=== PATIENT | female | born 1985 | race Hispanic/Latino ===

== ENCOUNTER 2017-08-19 19:00 | Inpatient (IN) | payer SELFPAY ==
[~2017-08-19 19:00] MED LIST: ISOVUE-370 76%-LOCM 1 ML ONE
[2017-08-19 19:17] LABS: #Basophils 0.1 thou/uL (0.0-0.2); #Eosinphils 0.1 thou/uL (0.0-0.7); #Lymphocytes 3.5 thou/uL (1.20-3.40); #Neutrophils 5.8 thou/uL (1.40-6.50); %Basophils 0.9 % (0.0-1.0); %Lymphocytes 33.4 % (21.0-51.0); %Monocytes 9.5 % (0.0-10.0); Mean Platelet Volume 7.3 fL (7.4-10.4); Red Blood Cell (RBC) Count 4.42 mill/uL (4.20-5.40); White Blood Cell (WBC) Count 10.5 thou/uL (4.8-10.8)
[2017-08-19 19:26] LABS: PTT 29.9 SEC (22.9-36.1); Prothrombin Time 13.3 SEC (12.0-14.7)
--- NOTE | 2017-08-19 19:27 | CT ---
BRAIN CT WITHOUT IV CONTRAST: 08/19/17 HISTORY: 32-year-old female with altered mental status and right sided weakness prior to admission. This is st [facility] alert. There is no focal mass or midline shift. No intra or extra-axial hemorrhage. Sinuses and mastoids are clear. No CT evidence for acute infarct. IMPRESSION: Unremarkable brain CT. No mass, hemorrhage or other acute process. Findings were discussed with Dr. Rosado by phone at 7:13 p.m. Code CR POS: [facility]
[2017-08-19 19:31] LABS: ALT (SGPT) 14 U/L (8-55); AST (SGOT) 17 U/L (5-34); Alkaline Phosphatase 58 U/L (40-150); Anion Gap 13 mmol/L (10-20); BUN (Urea Nitrogen) 10 mg/dL (7.0-18.7); Bilirubin, Total 0.5 mg/dL (0.2-1.2); Calc. Creatinine Clearance 0 mL/min (70-130); Calcium 9.2 mg/dL (7.8-10.44); Carbon Dioxide 26 mmol/L (22-29); Chloride 104 mmol/L (98-107); Estimated GFR-MDRD 89; Globulin 3.2 g/dL (2.4-3.5); Protein, Total 7.5 g/dL (6.0-8.3)
--- NOTE | 2017-08-19 19:32 | RAD ---
UPRIGHT PORTABLE CHEST ONE VIEW: 08/19/17 HISTORY: 32-year-old female with altered mental status and right sided weakness. Heart size is within normal limits. The lungs are clear. There appear to be some postop changes of th e right shoulder. IMPRESSION: No acute intrathoracic disease. POS: [facility]
[2017-08-19 19:34] LABS: Troponin I Less than 0.010 ng/mL (< 0.028)
--- NOTE | 2017-08-19 20:44 | CT ---
CTA NECK WITH 3D VOLUME RENDERING LIMITED CTA [place] WITH 3D VOLUME RENDERING 08/19/17 CLINICAL HISTORY: Right sided weakness, new onset with clinical concern for carotid dissection. FINDINGS: Imaging of the [place] reveals patent bilateral MCA and patent bilateral A1 segments and an unremarkable appearing ACOM region. There is no obvious occlusion or high grade stenosis of the proxi mal bilateral [employer] or involving either carotid terminus. There is a dominant left vertebral artery which is patent. Small caliber right vertebral artery parti ally terminates in PICA without definitive evidence for high grade stenosis or occlusion. The proxima l aspect is obscured by streak artifact from adjacent contrast density. Evaluation of each common car otid artery and cervical internal carotid artery reveals no high grade stenosis, occlusion or definit declan evidence for carotid dissection. Imaged upper lung zones reveal no consolidation. IMPRESSION: No definite evidence for carotid dissection. Additional details are described above. POS: [facility]
[2017-08-19 21:52] LABS: Bilirubin Negative (Negative); Blood, Urine Negative (Negative); Glucose, Urine (Dipstick) Negative (Negative); Ketone, Urine Negative (Negative); Nitrite Negative (Negative); Protein, Urine (Dipstick) Negative (Neg-Trace); Urobilinogen 0.2 mg/dL (0.2-1.0)
[2017-08-19 22:15] LABS: Amphetamine Not Detected (NotDetected); Methadone Not Detected (NotDetected); Methamphetamine Not Detected (NotDetected)
[2017-08-19] MEDS ORDERED: Morphine 4 MG/ML VIAL ONE (22:38)
[2017-08-19] MEDS ORDERED: Ketorolac Tromethamine 30 MG/ML VIAL ONE (22:46)
[2017-08-19] MEDS ORDERED: Fentanyl 100 MCG/2 ML VIAL ONE (22:46)
[2017-08-20 00:06] VITALS: BMI 26.4
[2017-08-20] MEDS ORDERED: hydrALAZINE 20 MG/ML VIAL SLOW IVP PRN (04:58)
[2017-08-20] MEDS ORDERED: Acetaminophen 325 MG TAB PO PRN (04:58)
--- NOTE | 2017-08-20 05:18 | HP ---
PRIMARY CARE PHYSICIAN: The patient does not have a primary care physician. CHIEF COMPLAINT: "Right neck pain as well as numbness and tingling on the right side of my body." HISTORY OF PRESENT ILLNESS: Ms. Michaud is a pleasant 32-year-old female who has no signif icant past medical history. She says in the last 2 weeks she has been experiencing moderate to sever e neck pain. She says that she noticed that even more when she was lying down watching TV with her b oyfriend. She says that they were messing around on the couch a bit and then she was lying down watc kaz television after that when she felt that her whole body went numb. She says that she tried to s tand up and it felt like her legs are going to give out on her and she also felt dizzy, then she noti gary the numbness on the side of her face as well as her right arm and leg and also the numbness went to her fingertips. For this reason, she came to the emergency room for evaluation. When asked if carolin machado had had any trauma, she does not remember having any trauma, but then she says about 2 years ago carolin machado had been drinking a little bit too much and fell and fractured her right clavicle. The patient den ies any chest pain or shortness of breath. No nausea, no vomiting. She says some of her symptoms long ve resolved, but she still notices some numbness in her right hand and some chest numbness. REVIEW OF SYSTEMS: Constitutional: There have been no fevers, chills, no night sweats, no weight lo ss. HEENT: No headache, no dizziness, no visual changes, no sore throat, rhinorrhea, neck pain, no adenopathy. Pulmonary: No hemoptysis, no cough, no wheezing. Cardiovascular: She denies any chest pain, no shortness of breath, no PND, no orthopnea. Gastrointestinal: No abdominal pain, no nausea , no vomiting, no change in bowels. Genitourinary: No urinary frequency, hematuria, no hesitancy. Neurologic: As in the history of present illness. Skin and Integument: No skin changes. No rash. PAST MEDICAL HISTORY: Negative. She says occasionally she has been told she had elevated blood pres sure. PAST SURGICAL HISTORY: She had surgery to repair her right clavicle. ALLERGIES: TYLENOL NO. 3. SOCIAL HISTORY: She is , but . No children. She smokes about a pack of cigarettes on the weekend. She does say that she drinks fairly heavily on the weekend and sometime she would ca ll a binge drinking, but she does not feel that she drinks too much. FAMILY HISTORY: Significant for heart attack and cancer in her grandmother. CURRENT MEDICATIONS: None. PHYSICAL EXAMINATION: GENERAL: She is alert and oriented. She appears to be in no acute distress. HEENT: Pupils are equal, round, and reactive. Extraocular muscles are intact. Sclerae are anicteri c. Throat: No erythema, no exudates. NECK: No adenopathy, no bruits. LUNGS: Clear. There is no wheezing, no rales. CARDIOVASCULAR: She has a normal S1 and S2. No S3 or S4. No murmurs, clicks, no rubs. ABDOMEN: Soft, it is nontender, nondistended. Positive for bowel sounds. There is no rebound, no g uarding. EXTREMITIES: No clubbing, cyanosis, no edema. NEUROLOGICALLY: The exam is nonfocal. LABORATORY DATA: EKG was normal sinus rhythm, no ST wave changes. White blood cell count 10.5, hemo globin 14, hematocrit is 42.0, platelet count is 293. INR is 1.0. Chemistries: Sodium 139, potassi um 4.0, chloride 104, CO2 is 26, BUN of 10, creatinine 0.75, glucose is 116. Urine test wa s negative. Toxicology screen was positive for cocaine and cannabinoids. ASSESSMENT AND PLAN: This is a 32-year-old female who presents with right-sided numbness and neck pa in as well. Given her age and lack of risk factors for coronary artery disease, I suspect that her s ymptoms could be related to a cervical strain or cervical radiculopathy. She did have a fall few yea rs back, which was forceful enough to have fractured her clavicle. She may have injured her cervical spine during that time as well. However, she does have a urine drug screen positive for cocaine and slightly elevated blood pressure and she is a smoker and therefore there are some risk factors for c erebrovascular disease. Therefore, we will get an MRI of the brain as well as an echocardiogram and carotid Dopplers, place her on aspirin. Check a lipid panel and get a PT, OT assessment.
[2017-08-20] MEDS: traMADol HCl 50 MG TAB PO PRN ×2 (05:27→14:48)
[2017-08-20] MEDS ORDERED: Aspirin 325 MG TAB PO SCH (08:00)
[2017-08-20] MEDS ORDERED: Enoxaparin Sodium 40 MG/0.4 ML SYRINGE SC SCH (09:00)
[2017-08-20] MEDS ORDERED: FLU VACC QS2017-18 36 mo. & older 0.5 ML SYRINGE IM ONE (09:00)
[2017-08-20] MEDS ORDERED: Aspirin 325 mg Enteric Coated Tablet PO SCH (09:00)
[2017-08-20] MEDS ORDERED: Famotidine 20 MG TAB PO SCH (09:00)
--- NOTE | 2017-08-20 10:19 | CON ---
DATE OF CONSULTATION: 08/20/2017 CONSULTING PHYSICIAN: Hospital Service. IMPRESSION: Probable anxiety attack. PLAN: MRI of the brain. HISTORY OF PRESENT ILLNESS: Ms. Michaud is a 32-year-old white female with no significant past hist ory. She reports that she did cocaine about 3 days ago. She also smokes pot. She suddenly develope d a tingling sensation involving her entire body. She then felt like the right side got a bit weak a nd she was having trouble walking and using her right arm. This went on for several hours. She came to the hospital for evaluation. She had a CT angiogram of the brain and nothing remarkable was foun d. She is a bit hypertensive initially, but this has since settled down. She still complains of cj e numbness on the right side of the body. Nothing like this has ever happened before. PAST MEDICAL HISTORY: Negative. ALLERGIES: TYLENOL and CODEINE. SOCIAL HISTORY: Positive for drug use. FAMILY HISTORY: Noncontributory. REVIEW OF SYSTEMS: No complaints of headaches or past history of migraines. PHYSICAL EXAMINATION: VITAL SIGNS: Blood pressure 126/81 and temperature 97.8. HEENT: Normal. NEUROLOGIC EXAM: Her speech is fluent and clear. Her exam is nonfocal, other than subjective sensor y deficit on the right side. LABORATORY STUDIES: Including CBC, coags, chemistries, urinalysis were all unremarkable other than a positive drug screen for cocaine and cannabis. SUMMARY: This is a 32-year-old woman, who presents with a non-anatomic complaint of paresthesias and weakness. It is extremely unlikely to be multiple sclerosis, and given the bizarre presentation, I suspect this is primarily a psychogenic.
--- NOTE | 2017-08-20 14:06 | MRI ---
MRI BRAIN WITHOUT CONTRAST: Date: 08/20/17 HISTORY: Evaluate for stroke. COMPARISON: CT brain from prior day. FINDINGS: On the diffusion-weighted imaging sequence, there are no abnormal areas of diffusion restriction. Thi s is confirmed on the ADC map. On the susceptibility weighted imaging sequence, there are no abnormal areas of hemorrhage. The flow-voids of the [place] are maintained. No abnormal areas of gliosis. No midline shift. No mass effect. Ventricular size and extra-axial CSF spaces are normal. Orbits are unremarkable. The cerebellar tonsils terminate at the level of the foramen magnum. The marrow signal of the clivus and upper cervical spine is normal. The corpus callosum is normal. IMPRESSION: Normal examination of the brain. POS: [facility]
--- NOTE | 2017-08-20 14:16 | MRI ---
MRI CERVICAL SPINE: Date: 08/20/17 HISTORY: Right-sided weakness. TECHNIQUE: Multiplanar, multisequence noncontrast enhanced MRI of cervical spine obtained. FINDINGS: Spinal cord is unremarkable. No evidence of cord masses or lesions seen. C1-2: Unremarkable. C2-3: Unremarkable. C3-4: Unremarkable. C4-5: There is some minimal disc desiccation. The central canal and neural foramen are patent. No si gnificant degree of central stenosis seen. C5-6: Unremarkable. C6-7: Unremarkable. C7-T1: Unremarkable. IMPRESSION: Multilevel disc desiccation. No significant degree of central stenosis or neural foraminal narrowing seen. POS: [facility]
[2017-08-20 16:06] VITALS: BP 151/85; TEMP 98.4
--- NOTE | 2017-08-20 17:19 | PDOC.EVN ---
Event Note - Event Note Event Note: Pt discharged, continue to complain of pain. Objectively no findings. Gave her a prescription for tramadol 50 mg POI q8h PRD (ten doses), advised her to followup with a PCP.
--- NOTE | 2017-08-20 22:48 | DIS ---
PRIMARY CARE PROVIDER: None. DATE OF ADMISSION: 08/20/2017 DATE OF DISCHARGE: 08/20/2017 DISCHARGE DIAGNOSES: Paresthesias and weakness, suspected psychogenic etiology. HOSPITAL COURSE: Ms. Michaud is a pleasant 32-year-old lady who was admitted to [facility] for paresthesias and weakness. Please refer to the history and physical note from for further information. She was seen by Neurology Service. It was felt that her non-anatom ic complaint of paraesthesias and weakness was primarily psychogenic. She had an MRI of the brain, w hich did not show any acute intracranial abnormality. She also had a cervical spine MRI, which showe d minimal disk desiccation at C4-C5. There was no significant degree of central stenosis. Please note that the patient's urine toxicology screen at the time of admission was positive for coca ine and cannabinoids. She has been advised to stop smoking and recreational drug use. She is advised to follow up with her primary care provider in 3-5 days. She is advised to return to the emergency room or seek medical h elp for new or worsening symptoms. DISCHARGE DESTINATION: Home.
== END 2017-08-20 17:34 | disposition home or self-care (01) | DRG 948 ==
LOC: ERS 19:00 → OBSVTOIN 22:31 → 2SE 22:31
PROVIDERS: ADMIT Internal Medicine; ATTEND Internal Medicine
DX: R53.1 Weakness (principal); F17.210 Nicotine dependence, cigarettes, uncomplicated; R20.2 Paresthesia of skin; F19.90 Other psychoactive substance use, unspecified, uncomplicated
CPT/HCPCS: 36416; 70450; 70498; 70551; 71010; 72141; 80053; 80306; 81003; 82553; 84484; 84702; 84703; 85025; 85610; 85730; 90471; 90682; 93005; 96374; 96375; G0008; G8987-GO-CI; G8988-GO-CH; J1650; J1885; J2270; J3010; Q2036

== ENCOUNTER 2019-08-18 21:14 | Day surgery (SDC) | payer OTHER ==
[2019-08-18 22:03] VITALS: BMI 33.2
[2019-08-18] MEDS ORDERED: hydrALAZINE 20 MG/ML VIAL SLOW IVP PRN (22:28)
--- NOTE | 2019-08-18 22:41 | PDOC.EVN ---
Event Note - Event Note Event Note: At bedside now: Feels baby move CX was closed last BP 120/80s
[2019-08-18 22:58] LABS: #Eosinphils 0.1 thou/uL (0.0-0.7); #Lymphocytes 2.1 thou/uL (1.20-3.40); #Neutrophils 6.9 thou/uL (1.40-6.50); %Basophils 0.4 % (0.0-1.0); %Eosinophils 0.7 % (0.0-10.0); %Monocytes 10.1 % (0.0-10.0); %Neutrophils 67.9 % (42.0-75.0); Mean Corpuscular HGB CONC 35.3 g/dL (32.0-36.0); Mean Corpuscular Hemoglobin 30.9 pg (27.0-31.0); Mean Corpuscular Volume 87.4 fL (78.0-98.0); Mean Platelet Volume 8.5 fL (7.4-10.4); Platelet Count 211 thou/uL (130-400); Red Blood Cell (RBC) Count 3.89 mill/uL (4.20-5.40); White Blood Cell (WBC) Count 10.1 thou/uL (4.8-10.8)
[2019-08-18 23:22] LABS: ALT (SGPT) 9 U/L (8-55); AST (SGOT) 14 U/L (5-34); Albumin 3.2 g/dL (3.5-5.0); Alkaline Phosphatase 190 U/L (40-110); Anion Gap 11 mmol/L (10-20); BUN (Urea Nitrogen) 10 mg/dL (7.0-18.7); Bilirubin, Total 0.4 mg/dL (0.2-1.2); Calc. Creatinine Clearance 119 mL/min (70-130); Calcium 8.5 mg/dL (7.8-10.44); Carbon Dioxide 20 mmol/L (22-29); Chloride 108 mmol/L (98-107); Estimated GFR-MDRD 82; Globulin 3.3 g/dL (2.4-3.5); Glucose 134 mg/dL (70-105); Potassium 3.9 mmol/L (3.5-5.1); Protein, Total 6.5 g/dL (6.0-8.3); Sodium 135 mmol/L (136-145)
--- NOTE | 2019-08-18 23:25 | HP ---
TIME: 2229. LOCATION: Labor and Delivery Triage in bed A. CHIEF COMPLAINT: Decreased movement and abdominal pressure. HISTORY OF PRESENT ILLNESS: In brief, this is a 34-year-old, G1, P0, at 37 weeks and 4 days, here for some decreased movement and nonspecific abdominal pain "all over." She denies vaginal bleeding, contractions, or leakage of fluid. She denies headache or visual changes. She denies any complications except gestational diabetes for which she is diet controlled. REVIEW OF SYSTEMS: Complete review of systems was checked and is otherwise negative unless specified in the HPI. PAST SURGICAL HISTORY: Includes right clavicular surgery. PAST MEDICAL HISTORY: Negative. ALLERGIES: CODEINE. SOCIAL HISTORY: Negative for alcohol, tobacco, or drug use. PHYSICAL EXAMINATION: VITAL SIGNS: Initial blood pressure was 140/93, retaken and it was 137/90. She is afebrile and her pulse is in the 80s to 90s. Respirations are 18 and nonlabored. ABDOMEN: Soft and nontender. Uterus has a soft fundus. Cervical exam is currently pending. There is no gross evidence of rupture or vaginal bleeding. On monitor, the nonstress test is reactive and reassuring. No contractions on tocodynamometer. INTERVENTIONS ORDERED: I have ordered CBC and complete metabolic profile. ASSESSMENT: This is a G1, P0, at 37 weeks with nonspecific abdominal pain, which could be discomforts of . She also has some decreased movement, but the nonstress test is reassuring. She has initial borderline blood pressure, but we are doing serial blood pressures. PLAN: 1. Serial blood pressures. 2. Check labs. 3. If blood pressures remain elevated and persistent, we may consider an induction for PIH. 4. No evidence of severe criteria at this time. Job ID: [id number]
--- NOTE | 2019-08-18 23:28 | PDOC.EVN ---
Event Note - Event Note Event Note: Labs ok OK for recheck BPs on Tuesday Repeats have been 12-130/80s
== END 2019-08-18 23:00 | disposition home or self-care (01) ==
LOC: L&D/OP 21:14
PROVIDERS: ATTEND Obstetrics & Gynecology
DX: O36.8130 Decreased fetal movements, third trimester, not applicable or unspecified (principal); O99.89 Other specified diseases and conditions complicating pregnancy, childbirth and the puerperium; R10.9 Unspecified abdominal pain; O09.513 Supervision of elderly primigravida, third trimester; Z3A.37 37 weeks gestation of pregnancy; Z88.5 Allergy status to narcotic agent; Z88.6 Allergy status to analgesic agent
CPT/HCPCS: 36415; 80053; 85025; 99283

== ENCOUNTER 2019-08-29 05:48 | Inpatient (IN) | payer OTHER ==
[2019-08-29] MEDS ORDERED: HYDROcodone/Acetaminophen 5/325 mg Tablet PO PRN (08:52)
[2019-08-29] MEDS ORDERED: Methylergonovine 0.2 MG/ML VIAL IM PRN (08:52)
[2019-08-29] MEDS ORDERED: Misoprostol 200 MCG TAB PR PRN (08:52)
[2019-08-29] MEDS ORDERED: Ibuprofen 800 MG TAB PO PRN (08:52)
[2019-08-29] MEDS ORDERED: Carboprost 250 MCG/ML AMP IM PRN (08:52)
[2019-08-29] MEDS ORDERED: NS / Oxytocin 40 units/1000ml 1,000 ML IV PRN (08:52)
[2019-08-29] MEDS ORDERED: Lidocaine 1% (PF) 30 ML VIAL SC PRN (08:52)
[2019-08-29] MEDS ORDERED: Diphenoxylate HCl/Atropine Tablet PO PRN (08:52)
--- NOTE | 2019-08-29 08:58 | PDOC.LDHP ---
Labor and Delivery H&P Chief complaint: contractions HPI: 34yo at 39w0d by LMP here for painful contractions overnight, LOF since approx 8am this am. Good FM. 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, FOB negative Current medications: pre- vitamins Previous surgical history: other (clavicle surgery) Allergies/Adverse Reactions: Allergies Allergy/AdvReac Type Severity Reaction Status Date / Time acetaminophen Allergy Verified 08/18/19 22:05 [From Tylenol-Codeine #3] codeine Allergy Verified 08/18/19 22:05 [From Tylenol-Codeine #3] Social history: none - Physical Exam Vital signs reviewed and normal: yes General: breathing through contractions Heart: RRR Lungs: CTAB Abdomen: gravid Extremeties: no edema FHT: category 1 [place] contractions every: 3-5min - Vaginal Exam cm dilated: 4 Effacement: 90% Station: -1 - OB Labs Blood type: O RH: positive Antibody Screen: negative HIV: negative RPR: negative HEPSAg: negative 1 hour GCT: positive 3 hour GTT: positive GBS: negative Urine drug screen: positive Rubella: immune - Assessment L&D Assessment: term patient in labor - Plan Plan: admit to L&D, labor augmentation if indicated, informed consent obtained, anesthesia consult for pain management -: accuchecks, repeat UDS
[2019-08-29] MEDS ORDERED: hydrALAZINE 20 MG/ML VIAL ONE (09:21)
[2019-08-29] MEDS ORDERED: Butorphanol Tartrate 1 MG/ML VIAL ONE (09:37)
[2019-08-29] MEDS ORDERED: Fentanyl 4 mcg/Bup 0.1% Cadd 100 ML ONE (09:41)
[2019-08-29] MEDS ORDERED: Lidocaine 1.5%/Epinephrine 1:200,000 5 ML AMPUL IJ ONE (09:42)
[2019-08-29 09:57] LABS: ALT (SGPT) 11 U/L (8-55); AST (SGOT) 18 U/L (5-34); Albumin 3.8 g/dL (3.5-5.0); Alkaline Phosphatase 237 U/L (40-110); Anion Gap 17 mmol/L (10-20); BUN (Urea Nitrogen) 12 mg/dL (7.0-18.7); Bilirubin, Total 0.6 mg/dL (0.2-1.2); Calc. Creatinine Clearance 0 mL/min (70-130); Calcium 8.8 mg/dL (7.8-10.44); Carbon Dioxide 16 mmol/L (22-29); Chloride 103 mmol/L (98-107); Estimated GFR-MDRD 75; Globulin 3.4 g/dL (2.4-3.5); Glucose 130 mg/dL (70-105); Potassium 4.5 mmol/L (3.5-5.1); Protein, Total 7.2 g/dL (6.0-8.3); Sodium 131 mmol/L (136-145)
[2019-08-29 10:12] VITALS: BMI 28.3
[2019-08-29 10:12] LABS: #Lymphocytes 1.3 thou/uL (1.20-3.40); #Monocytes 0.6 thou/uL (0.11-0.59); #Neutrophils 14.8 thou/uL (1.40-6.50); %Basophils 0.2 % (0.0-1.0); %Eosinophils 0.2 % (0.0-10.0); %Lymphocytes 7.5 % (21.0-51.0); %Monocytes 3.4 % (0.0-10.0); %Neutrophils 88.7 % (42.0-75.0); Hemoglobin 13.5 g/dL (12.0-16.0); Mean Corpuscular HGB CONC 34.6 g/dL (32.0-36.0); Mean Corpuscular Hemoglobin 30.4 pg (27.0-31.0); Mean Corpuscular Volume 87.8 fL (78.0-98.0); Mean Platelet Volume 9.8 fL (7.4-10.4); Platelet Count 223 thou/uL (130-400); RBC Distribution Width 12.4 % (11.5-14.5); Red Blood Cell (RBC) Count 4.44 mill/uL (4.20-5.40); White Blood Cell (WBC) Count 16.7 thou/uL (4.8-10.8)
[2019-08-29 10:19] LABS: Amphetamine Not Detected (NotDetected); Barbiturates Screen Not Detected (NotDetected); Benzodiazepine Screen Not Detected (NotDetected); Cocaine Metabolite Screen Not Detected (NotDetected); Medtox Control Line Valid? VALID (VALID); Medtox Reader # READER 4; Methadone Not Detected (NotDetected); Methamphetamine Not Detected (NotDetected); Opiate Screen Not Detected (NotDetected); Oxycodone Screen Not Detected (NotDetected); Phencyclidine (PCP) Not Detected (NotDetected); THC/Cannabinoid Screen Not Detected (NotDetected); Tricyclic Screen Not Detected (NotDetected)
[2019-08-29 10:24] LABS: Creatinine, Urine 77.95 mg/dL (47-110)
[2019-08-29] MEDS ORDERED: Bupivacaine 0.25% 10 ML VIAL ONE (16:21)
--- NOTE | 2019-08-29 16:37 | PDOC.OPDEL ---
OB Operative/Delivery Note Delivery Dr/Surgeon: Julien Assist: n/a Pre-Delivery Diagnosis: active labor Procedure/Post Delivery Dx: spontaneous vaginal delivery Weeks gestation: 39 Anesthesia: epidural - Findings A Sex: male - 1 min: 8 - 5 min: 9 - Additional Findings/Plan Placenta delivered: spontaneous Repaired Obstetrical Laceration: 1st degree Estimated blood loss: 300cc Post delivery plan: routine recovery
[2019-08-29] MEDS ORDERED: Ondansetron PF 4 MG/2 ML Vial IVP PRN (17:54)
[2019-08-29] MEDS ORDERED: Preparation H Ointment 57 gram tube RC PRN (17:54)
[2019-08-29] MEDS ORDERED: Lanolin Ointment 7 GM TUBE TOP PRN (17:54)
[2019-08-29] MEDS ORDERED: Bisacodyl 10 MG SUPP PR PRN (17:54)
[2019-08-29] MEDS ORDERED: Promethazine HCl 25 MG/ML VIAL IM PRN (17:54)
[2019-08-29] MEDS ORDERED: Benzocaine-Menthol 82.5 ML CAN TOP PRN (17:54)
[2019-08-29] MEDS ORDERED: traMADol HCl 50 MG TAB PO PRN ×2 (17:54)
[2019-08-29] MEDS ORDERED: diphenhydrAMINE 25 MG CAP PO PRN (17:54)
[2019-08-29] MEDS ORDERED: hydrALAZINE 20 MG/ML VIAL SLOW IVP PRN (17:54)
[2019-08-29] MEDS ORDERED: Milk Of Magnesia 30 ML UDCUP PO PRN (17:54)
[2019-08-29] MEDS ORDERED: Ferrous Sulfate 325 MG TAB PO SCH (18:15)
[2019-08-29] MEDS ORDERED: NS / Oxytocin 40 units/1000ml 1,000 ML IV SCH (18:15)
[2019-08-29] MEDS: Docusate Calcium (SURFAK) 240 MG CAP PO SCH (23:57)
[2019-08-29] MEDS: Ibuprofen 800 MG TAB PO SCH (23:57)
[2019-08-30] MEDS: Ibuprofen 800 MG TAB PO SCH ×4 (06:17→21:27)
--- NOTE | 2019-08-30 06:50 | PDOC.PP ---
Post Progress Note Post Day #: 1 PO intake tolerated: yes Flatus: yes Ambulation: yes Vital Signs (12 hours) Temp Pulse Resp BP Pulse Ox 08/30/19 06:10 98.0 F 88 99/57 L 08/29/19 23:30 98.2 F 101 H 16 131/73 08/29/19 22:00 98.7 F 111 H 16 130/76 98 08/29/19 20:50 98.4 F 109 H 16 137/88 97 Weight Weight 170 lb - Physical Examination General: NAD Cardiovascular: RRR Respiratory: non-labored breathing Abdominal: no distention, appropriately TTP Fundus firm & at: umb Skin: no rash Neurological: no gross focal deficits Psychiatric: normal affect Result Diagrams: 08/29/19 09:13 08/29/19 09:13 Additional Labs: Post Labs Blood Type O POSITIVE 08/29/19 09:13 - Assessment/Plan PPD1 s/p TSVD VSSAF Doing well lochia < menses pain controlled Rh pos RImm Cont PP care, home tomorrow
[2019-08-30] MEDS: Docusate Calcium (SURFAK) 240 MG CAP PO SCH ×2 (08:19→21:27)
[2019-08-30] MEDS: Prenatal Vitamin 1 TAB PO SCH (08:19)
[2019-08-30] MEDS: Ferrous Sulfate 325 MG TAB PO SCH ×2 (08:57→14:42)
[2019-08-30] MEDS ORDERED: Adacel (T-DAP) 0.5 ML SYRINGE IM ONE (09:00)
[2019-08-31] MEDS: Ibuprofen 800 MG TAB PO SCH (05:46)
--- NOTE | 2019-08-31 06:47 | PDOC.PP ---
Post Progress Note Post Day #: 2 Subjective: Doing well, ready for DC PO intake tolerated: yes Flatus: yes Ambulation: yes Vital Signs (12 hours) Temp Pulse Resp BP Pulse Ox 08/30/19 19:18 98.6 F 82 16 124/70 98 Weight Weight 170 lb Vitals reviewed for last 24 hrs...wnl - Physical Examination General: NAD Abdominal: + bowel sounds, lochia, no distention, appropriately TTP Extremities: negative homans (B) Neurological: no gross focal deficits Psychiatric: A&Ox3, normal affect Result Diagrams: 08/29/19 09:13 08/29/19 09:13 Additional Labs: Post Labs Blood Type O POSITIVE 08/29/19 09:13 (1) Vaginal delivery Code(s): O80 - ENCOUNTER FOR FULL-TERM UNCOMPLICATED DELIVERY Status: Acute - Assessment/Plan Plan: PPD 2...stable for DC Patient seen by me at bedside Doing well
[2019-08-31 08:11] VITALS: BP 116/63; TEMP 98.9
[2019-08-31] MEDS: Ferrous Sulfate 325 MG TAB PO SCH (09:28)
[2019-08-31] MEDS: Docusate Calcium (SURFAK) 240 MG CAP PO SCH (09:29)
[2019-08-31] MEDS: Prenatal Vitamin 1 TAB PO SCH (09:29)
== END 2019-08-31 11:05 | disposition home or self-care (01) | DRG 807 ==
LOC: L&D/OP 05:48 → L&D 16:32 → 3SW 21:10
PROVIDERS: ADMIT Obstetrics & Gynecology; ATTEND Obstetrics & Gynecology
PROC: 10E0XZZ Delivery of Products of Conception, External Approach (ICD-10-PCS; principal; 2019-08-29)
PROC: 0HQ9XZZ Repair Perineum Skin, External Approach (ICD-10-PCS; 2019-08-29)
DX: O24.420 Gestational diabetes mellitus in childbirth, diet controlled (principal); Z37.0 Single live birth; Z3A.39 39 weeks gestation of pregnancy; Z88.5 Allergy status to narcotic agent; Z88.8 Allergy status to other drugs, medicaments and biological substances; O70.0 First degree perineal laceration during delivery
CPT/HCPCS: 51702; 80053; 80306; 82570; 84156; 85025; 99285; J0360; J0595; J3490; S0020